=== PATIENT | male | born 1955 | race Caucasian/White ===

== ENCOUNTER 2016-06-29 11:02 | Emergency (ER) | payer BC ==
[2016-06-29] MEDS ORDERED: DIPHTH,PERTUSS(ACELL),TET VAC 0.5 ML VIAL IM ONE (11:50)
[2016-06-29] MEDS: DIPHTH,PERTUSS(ACELL),TET VAC 0.5 ML VIAL IM ONE (12:15)
[2016-06-29 13:20] VITALS: BP 138/82
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
== END 2016-06-29 13:22 | disposition home or self-care (01) ==
LOC: ER 11:02
DX: S30.810A Abrasion of lower back and pelvis, initial encounter (principal); M25.521 Pain in right elbow; M25.551 Pain in right hip; Z96.649 Presence of unspecified artificial hip joint; Z96.659 Presence of unspecified artificial knee joint; Z23 Encounter for immunization; W01.0XXA Fall on same level from slipping, tripping and stumbling without subsequent striking against object, initial encounter

== ENCOUNTER 2017-08-04 11:23 | Day surgery (SDC) | payer MEDICARE, BC ==
[~2017-08-04 11:23] MED LIST: RINGER'S SOLUTION,LACTATED 1,000 ML IV PRN
[2017-08-04 15:47] VITALS: BP 143/82
--- NOTE | 2017-08-04 16:17 | OR ---
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 A flexible fiberoptic video colonoscope was introduced and advanced under direct vision without difficulty to the cecum. The usual landmarks were identified. Preparation was excellent and excellent views were obtained. Findings were of a normal cecum, ascending colon, hepatic flexure, transverse colon, splenic flexure, descending colon, sigmoid colon, and rectum. Retroflexed view was normal. The mucosal collar, vasculature, and texture were normal throughout. No suspicious masses were seen. The patient tolerated the procedure well without apparent complications and was discharged from the endoscopy suite in stable condition.
== END 2017-08-04 11:24 | disposition home or self-care (01) ==
LOC: AMB 11:23
PROVIDERS: ATTEND Specialist
PROC: 0DJD8ZZ Inspection of Lower Intestinal Tract, Via Natural or Artificial Opening Endoscopic (ICD-10-PCS; principal; 2017-08-04)
DX: Z12.11 Encounter for screening for malignant neoplasm of colon (principal); Z80.0 Family history of malignant neoplasm of digestive organs; Z68.29 Body mass index [BMI] 29.0-29.9, adult